=== PATIENT | female | born 1980 | race Caucasian/White ===

== ENCOUNTER → 2018-04-27 | Outpatient (CLI) | payer BC ==
--- NOTE | 2018-04-30 07:38 | MM ---
Reason for exam: screening (asymptomatic). Baseline mammogram. Physical Findings: Nurse did not find any significant physical abnormalities on exam. MG 3D Screening Mammo W/Cad Bilateral CC and MLO view(s) were taken. The breast tissue is heterogeneously dense. This may lower the sensitivity of mammography. Benign calcifications in the right breast. There is no discrete abnormality. These results were verbally communicated with the patient and result sheet given to the patient on 04/27/18. ASSESSMENT: Benign, BI-RAD 2 RECOMMENDATION: Routine screening mammogram of both breasts in 1 year.
== END ==
LOC: RADMAMWWP 13:58
PROVIDERS: ATTEND Family Medicine
DX: Z12.31 Encounter for screening mammogram for malignant neoplasm of breast (principal)
CPT/HCPCS: 77063; 77067

== ENCOUNTER 2018-05-17 09:18 | Day surgery (SDC) | payer BC ==
[2018-05-16 12:26] VITALS: BMI 23.3
--- NOTE | 2018-05-16 16:43 | P.HPOB ---
History of Present Illness H&P Date: 05/16/18 Chief Complaint: High-grade squamous intraepithelial lesion Ana is a 38-year-old female with NIMISHA 3 on colposcopy. She is scheduled for a LEEP colposcopy. Risks/benefits/alternatives to LEEP colposcopy including but not limited to bleeding and infection were explained to the patient in detail all questions were answered for her prior to proceeding to the operating room. During her colposcopy in the office, she had a small punctate lesion that continued to bleed despite just been touched with a Q-tip this area was biopsied and did show NIMISHA-3. She will need close follow-up after this procedure with continued surveillance for approximately the next 20 years. Past Medical History Additional Past Medical History / Comment(s): HX FX SKULL(5 YRS OLD), STOMACH ULCER (IN HER 20'S), ARTHRITIS IN SHOULDERS AND BACK. - SEES CHIROPRACTOR., ABNORMAL PAP TEST. History of Any Multi-Drug Resistant Organisms: None Reported Past Surgical History: Section, Orthopedic Surgery Additional Past Surgical History / Comment(s): RIGHT WRIST SURGERY Past Anesthesia/Blood Transfusion Reactions: Postoperative Nausea & Vomiting ( PONV) Additional Past Anesthesia/Blood Transfusion Reaction / Comment(s): NAUSEA WITH Past Psychological History: Anxiety, Depression Additional Psychological History / Comment(s): PAST HX OF DEPRESSION & ANXIETY. Smoking Status: Current every day smoker Past Alcohol Use History: Occasional Additional Past Alcohol Use History / Comment(s): SMOKES 1 PPD, SMOKING SINCE 12 YRS OLD. DRINKS ON WEEKENDS > 7 DRINKS. Past Drug Use History: Marijuana Additional Drug Use History / Comment(s): CURRENT MARIJUANA USE. - Past Family History Mother Family Medical History: No Reported History Medications and Allergies Home Medications Medication Instructions Recorded Confirmed Type Ibuprofen [Advil] 600 mg PO ONCE PRN 05/16/18 05/16/18 History Allergies Allergy/AdvReac Type Severity Reaction Status Date / Time hydrocodone [From Lortab] AdvReac Unknown Nausea, Verified 05/16/18 12:11 Did not feel well. Exam Osteopathic Statement: *. No significant issues noted on an osteopathic structural exam other than those noted in the History and Physical/Consult. Intake and Output 05/16/18 05/16/18 05/16/18 06:59 14:59 22:59 Other: Weight 63.503 kg - OBG Physical Exam Breast: both: normal (no masses) Abdomen: bowel sounds normal, no diffuse tenderness, no bruit present, no guarding noted, no hepatomegaly, no splenomegaly, no mass Vulva: both: normal Vagina: normal moisture, no discharge Cervix: no lesion, no discharge Uterus: normal size, normal contour Adnexa: both: normal Anus/Rectum: normal perianal skin, no rectal mass, no hemorrhoids, heme negative
[~2018-05-17 09:18] MED LIST: DEXAMETHASONE SOD PHOSPHATE 10 MG/ML 1 ML VIAL IV ONE; LACTATED RINGERS 1,000 ML IV SCH; MIDAZOLAM 2 MG/2 ML VIAL IV PRN; ONDANSETRON 4 MG/2 ML VIAL IVP ONE; Pre Op ABX Message 1 EACH MISC MISCELLANE ONE; SCOPOLAMINE 1.5MG/72HR PATCH TRANSDERM ONE; fentaNYL (PF) 50 MCG/ML 2 ML AMP IV PRN
[2018-05-17] MEDS ORDERED: LIDOCAINE 1% 20 ML VIAL (10MG/ML) FOR IV START INTRADERMA ONE (09:56)
[2018-05-17] MEDS ORDERED: fentaNYL (PF) 50 MCG/ML 2 ML AMP ONE (10:23)
[2018-05-17] MEDS ORDERED: PROPOFOL 10 MG/ML 20 ML VIAL IV ONE (10:23)
[2018-05-17] MEDS ORDERED: MIDAZOLAM 2 MG/2 ML VIAL ONE (10:23)
[2018-05-17] MEDS ORDERED: LIDOCAINE 1% INJ 10MG/ML (20 ML MDV) ONE (10:23)
[2018-05-17] MEDS ORDERED: KETOROLAC 30 MG/ML 1 ML VIAL ONE (10:23)
[2018-05-17] MEDS ORDERED: IODINE/POTASS IOD (LUGOLS) BTL TOPICAL ONE ×2 (10:35)
[2018-05-17 11:08] VITALS: TEMP 97.4
[2018-05-17] MEDS ORDERED: ONDANSETRON 4 MG/2 ML VIAL IVP ONE (12:01)
[2018-05-17] MEDS ORDERED: fentaNYL (PF) 50 MCG/ML 2 ML AMP IVP ONE (12:28)
[2018-05-17 12:33] VITALS: BP 117/79; PULSE 52; RESP 18
--- NOTE | 2018-05-29 12:52 | P.OP ---
Date of Procedure: 05/16/18 Preoperative Diagnosis: Cervical dysplasia Postoperative Diagnosis: Same Procedure(s) Performed: LEEP colposcopy Anesthesia: TESSA Surgeon: Jono Pantoja Pathology: other (Cervical cone) Condition: stable Disposition: same day Operative Findings: Tissue pathology pending Description of Procedure: Patient states the operating suite where a general anesthetic was found be adequate. She was prepped and draped in normal sterile fashion placed in dorsal lithotomy position. Initially a speculum was inserted into the vagina and the cervix was coated with Lugol solution colposcope was brought in and areas of dysplasia identified. Using a 2 cm loop and under colposcopic guidance a biopsy was taken with the loop. Tissue was collected and 1 sample and sent to pathology for evaluation. Once sample was obtained ball-tipped cautery was then used to obtain excellent hemostasis across the incision and to potentially desiccate any remaining dysplastic tissue. Once this was accomplished sponge, lap, needle counts were all correct 2. Patient was then taken to the recovery room in stable and satisfactory condition. Plan - Discharge Summary New Discharge Prescriptions: No Action Ibuprofen [Advil] 600 mg PO ONCE PRN PRN Reason: Pain Discharge Medication List Ibuprofen [Advil] 600 mg PO ONCE PRN 05/16/18 [History] Follow up Appointment(s)/Referral(s): Jono Pantoja DO [Doctor of Osteopathic Medicine] - 1 Week (PT TO MAKE FOLLOW UP APPOINTMENT) Patient Instructions/Handouts: *Surgery [facility] - (Anesthesia) Discharge Instructions Outpatient Surgery, Loop Electrosurgical Excision Procedure (DC) Discharge Disposition: HOME SELF-CARE
== END 2018-05-17 13:02 | disposition home or self-care (01) ==
LOC: OR 09:18
PROVIDERS: ATTEND Obstetrics & Gynecology
DX: N87.1 Moderate cervical dysplasia (principal); F17.210 Nicotine dependence, cigarettes, uncomplicated; F32.9 Major depressive disorder, single episode, unspecified; F41.9 Anxiety disorder, unspecified; Z88.5 Allergy status to narcotic agent; R89.6 Abnormal cytological findings in specimens from other organs, systems and tissues
CPT/HCPCS: 81025; 88307; 57460; J2250; J1100; J2405; J2001; J3010; J1885; J2704

== ENCOUNTER → 2020-01-09 | Outpatient (CLI) | payer BC ==
--- NOTE | 2020-01-14 10:47 | MM ---
Reason for exam: screening (asymptomatic). Last mammogram was performed 1 year and 8 months ago. Physical Findings: A clinical breast exam by your physician is recommended on an annual basis and results should be correlated with mammographic findings. MG Screening Mammo w CAD Bilateral CC and MLO view(s) were taken. Prior study comparison: April 27, 2018, bilateral MG 3d screening mammo w/cad. The breast tissue is heterogeneously dense. This may lower the sensitivity of mammography. No suspicious abnormality. No significant changes when compared with prior studies. ASSESSMENT: Negative, BI-RAD 1 RECOMMENDATION: Routine screening mammogram of both breasts in 1 year. Manage on a clinical basis with regard to chronic nipple discharge for 21 years. If truly clear surgical consult recommended.
== END | disposition home or self-care (01) ==
LOC: RADMAMWWP 16:21
PROVIDERS: ATTEND Obstetrics & Gynecology
DX: Z12.31 Encounter for screening mammogram for malignant neoplasm of breast (principal)
CPT/HCPCS: 77067

== ENCOUNTER → 2020-08-19 | Outpatient (CLI) | payer BC ==
[2020-08-19 16:17] LABS: Basophils # (A) 0.1 k/uL (0-0.2); Basophils % (A) 1 %; Eosinophils # (A) 0.1 k/uL (0-0.7); Eosinophils % (A) 2 %; HCT 43.5 % (34.0-46.0); HGB 14.3 gm/dL (11.4-16.0); Lymphocytes # (A) 2.3 k/uL (1.0-4.8); Lymphocytes % (A) 31 %; MCH 29.4 pg (25.0-35.0); MCHC 32.9 g/dL (31.0-37.0); MCV 89.3 fL (80.0-100.0); Monocytes # (A) 0.4 k/uL (0-1.0); Monocytes % (A) 6 %; Neutrophils # (A) 4.2 k/uL (1.3-7.7); Neutrophils % (A) 58 %; Platelet Count 229 k/uL (150-450); RBC 4.88 m/uL (3.80-5.40); RDW 13.8 % (11.5-15.5); WBC 7.2 k/uL (3.8-10.6)
== END | disposition home or self-care (01) ==
LOC: LABWHC1 15:08
PROVIDERS: ATTEND Obstetrics & Gynecology
DX: Z01.818 Encounter for other preprocedural examination (principal)
CPT/HCPCS: 36415; 85025

== ENCOUNTER 2020-08-21 06:52 | Day surgery (SDC) | payer BC ==
[2020-08-19 12:59] VITALS: BMI 23.3
--- NOTE | 2020-08-20 17:14 | P.HPOB ---
History of Present Illness H&P Date: 08/20/20 Chief Complaint: Family planning: Possible polyp Disha is a 40-year-old female who has completed her family planning and desires permanent sterilization. She also relates that she has some dysfunctional bleeding after intercourse and there is some question or may be a possible polyp at her cervix. We'll do the evaluation under anesthesia. Risks/benefits also alternatives were reviewed with patient in detail and did include but were not limited to bleeding and infection, damage to bladder or bowel, vascular injuries, nerve injuries, ureteral injuries potential need for further surgery and even potentially . She is aware that this procedure is not designed to be reversed it is designed to be permanent. She is aware the risk of failure approximately 4 per thousand. All the questions were answered for her prior to proceeding to the operating room. Past Medical History Additional Past Medical History / Comment(s): HX FX SKULL(5 YRS OLD), STOMACH ULCER (IN HER 20'S), SHOULDER AND BACK PAIN. - SEES CHIROPRACTOR. History of Any Multi-Drug Resistant Organisms: None Reported Past Surgical History: Section, Orthopedic Surgery Additional Past Surgical History / Comment(s): RIGHT WRIST SURGERY, colposcopy, oral surg. Past Anesthesia/Blood Transfusion Reactions: Postoperative Nausea & Vomiting (PONV) Additional Past Anesthesia/Blood Transfusion Reaction / Comment(s): NAUSEA WITH Smoking Status: Current every day smoker - Past Family History Mother Family Medical History: No Reported History Medications and Allergies Home Medications Medication Instructions Recorded Confirmed Type No Known Home Medications 08/19/20 08/19/20 History Allergies Allergy/AdvReac Type Severity Reaction Status Date / Time hydrocodone [From Lortab] AdvReac Unknown Nausea, Verified 08/19/20 10:14 Did not feel well. Exam Osteopathic Statement: *. No significant issues noted on an osteopathic structural exam other than those noted in the History and Physical/Consult. - OBG Physical Exam Breast: both: normal (no masses) Abdomen: bowel sounds normal, no diffuse tenderness, no bruit present, no guarding noted, no hepatomegaly, no splenomegaly, no mass Vulva: both: normal Vagina: normal moisture, no discharge Cervix: no lesion, no discharge Uterus: normal size, normal contour Adnexa: both: normal Anus/Rectum: normal perianal skin, no rectal mass, no hemorrhoids, heme negative
[~2020-08-21 06:52] MED LIST changes: -DEXAMETHASONE SOD PHOSPHATE 10 MG/ML 1 ML VIAL IV ONE; -LACTATED RINGERS 1,000 ML IV SCH; -MIDAZOLAM 2 MG/2 ML VIAL IV PRN; -ONDANSETRON 4 MG/2 ML VIAL IVP ONE; -SCOPOLAMINE 1.5MG/72HR PATCH TRANSDERM ONE; -fentaNYL (PF) 50 MCG/ML 2 ML AMP IV PRN
[2020-08-21] MEDS ORDERED: LACTATED RINGERS 1,000 ML IV SCH (07:36)
[2020-08-21] MEDS ORDERED: ONDANSETRON 4 MG/2 ML VIAL IVP ONE (07:36)
[2020-08-21] MEDS ORDERED: DEXAMETHASONE SOD PHOSPHATE 4 MG/ML 1 ML VIAL IV ONE (07:36)
[2020-08-21] MEDS ORDERED: LIDOCAINE 1% (10MG/ML) FOR IV START INTRADERMA ONE (07:50)
[2020-08-21] MEDS ORDERED: ROCURONIUM 10 MG/ML (10 ML VIAL) IV ONE (08:00)
[2020-08-21] MEDS ORDERED: NEOSTIGMINE 1 MG/ML 10 ML VIAL ONE (08:00)
[2020-08-21] MEDS ORDERED: MIDAZOLAM 2 MG/2 ML VIAL ONE (08:00)
[2020-08-21] MEDS ORDERED: GLYCOPYRROLATE 0.2 MG/ML 2 ML VIAL ONE (08:00)
[2020-08-21] MEDS ORDERED: PROPOFOL 10 MG/ML 20 ML VIAL IV ONE (08:00)
[2020-08-21] MEDS ORDERED: SUCCINYLCHOLINE CHLORIDE 100 MG/5 ML SYR IV ONE (08:00)
[2020-08-21] MEDS ORDERED: fentaNYL (PF) 50 MCG/ML 2 ML AMP ONE (08:00)
[2020-08-21] MEDS ORDERED: LIDOCAINE 1% INJ 10MG/ML (20 ML MDV) ONE (08:00)
[2020-08-21] MEDS ORDERED: KETOROLAC 15 MG/ML 1 ML VIAL ONE (08:00)
[2020-08-21] MEDS ORDERED: BUPIVACAINE (PF) 0.25% 30 ML VIAL SQ ONE ×2 (08:09→08:10)
--- NOTE | 2020-08-21 08:41 | P.OP ---
Date of Procedure: 08/21/20 Preoperative Diagnosis: Family planning and cervical polyp Postoperative Diagnosis: Same Procedure(s) Performed: Laparoscopic tubal occlusion with Filshie clips and cervical polypectomy Anesthesia: TESSA Surgeon: Jono Pantoja Estimated Blood Loss (ml): 4 Urine output (ml): 20 Pathology: other (Polyp) Condition: stable Disposition: same day Operative Findings: Pathology pending Description of Procedure: Patient states the operating suite where a general anesthetic was found be adequate. She was prepped and draped in normal sterile fashion and placed in the dorsal lithotomy position. Initially a speculum was inserted in the vagina and anterior lip of the cervix was identified and grasped with an Allis clamp. Cervix was dilated and a small polyp was believed to be noted at the cervical os. He was removed with the polyp forceps and then gentle all 4 forceps was used intrauterine to verify removal of total polyp. Once this was completed all other incidents removed and a manipulator was inserted without difficulty. Once this was completed the other vaginal incidents removed and red rubber catheter was used to drain the bladder of urine. At this point following removal of the red rubber catheter gloves were changed and attention was turned to the abdominal portion of the procedure where 2 mL of quarter percent Marcaine was injected periumbilically. Through this injected anesthetic a 5 mm skin incision was made and through this incision, under direct visualization with an optical trocar and sleeve, camera was inserted. Once peritoneal placement was assured gas was allowed to fully insufflate the abdomen and patient was placed in steep Trendelenburg position. A second port and sleeve were then inserted through her scar 3 cm above the pubic symphysis. Again this was inserted under direct visualization. Observations pelvis were then noted. First the right fallopian tube than left looking tube had a Filshie clip applied 2-3 cm from uterine cornu. No bleeding is noted in the mesosalpinx therefore incidents removed and gas was allowed to expel the abdomen. 5 deep breaths were provided during this process. 4-0 Vicryl was then used to close incision subcuticularly and another 8 mL of quarter percent Marcaine was injected around these incisions. Manipulator was then removed from vagina. Sponge, lap, needle counts were all correct 2. Patient was then taken to the recovery room in stable and satisfactory condition. Plan - Discharge Summary Discharge Rx Participant: Yes New Discharge Prescriptions: New Ibuprofen [Motrin] 600 mg PO Q6HR PRN #30 tab PRN Reason: Pain HYDROcodone/APAP 5-325MG [Trona 5-325] 1 tab PO Q4HR PRN #20 tab PRN Reason: Pain valACYclovir HCL [Valtrex] 500 mg PO Q12HR #10 tab Discharge Medication List HYDROcodone/APAP 5-325MG [Trona 5-325] 1 tab PO Q4HR PRN #20 tab 08/21/20 [Rx] Ibuprofen [Motrin] 600 mg PO Q6HR PRN #30 tab 08/21/20 [Rx] valACYclovir HCL [Valtrex] 500 mg PO Q12HR #10 tab 08/21/20 [Rx] Follow up Appointment(s)/Referral(s): Jono Pantoja DO [Doctor of Osteopathic Medicine] - 2 Weeks Activity/Diet/Wound Care/Special Instructions: V lifting, limit stairs and driving, and pelvic rest. If any high temperatures, heavy bleeding, or severe pain call my office Discharge Disposition: HOME SELF-CARE
[2020-08-21 08:48] VITALS: TEMP 97.6
[2020-08-21] MEDS: HYDROmorphone 0.5 MG/0.5 ML SYRINGE IVP PRN ×2 (09:01→09:07)
[2020-08-21 09:02] VITALS: RESP 16
[2020-08-21] MEDS ORDERED: HYDROcodone/APAP 5-325MG 1 EACH TAB ONE (10:13)
[2020-08-21] MEDS ORDERED: HYDROcodone/APAP 5-325MG 1 EACH TAB PO ONE (10:14)
[2020-08-21 10:18] VITALS: BP 121/69; PULSE 47
== END 2020-08-21 10:47 | disposition home or self-care (01) ==
LOC: OR 06:52
PROVIDERS: ATTEND Obstetrics & Gynecology
DX: Z30.2 Encounter for sterilization (principal); N84.1 Polyp of cervix uteri; Z98.890 Other specified postprocedural states; F17.200 Nicotine dependence, unspecified, uncomplicated; Z88.5 Allergy status to narcotic agent; Z87.11 Personal history of peptic ulcer disease; Z98.891 History of uterine scar from previous surgery
CPT/HCPCS: 81025; 88305; 57500; 58671; J2250; J1100; J2710; J2405; J2001; J3010; J1885; J0330; J2704; J1170

== ENCOUNTER → 2023-03-07 | Day surgery (SDC) | payer BC ==
[2023-03-01 08:52] VITALS: BMI 22.4
[~2023-03-07] MED LIST changes: +LACTATED RINGERS 1,000 ML IV SCH; +LIDOCAINE 1% (10MG/ML) FOR IV START INTRADERMA ONE; +PROPOFOL 10 MG/ML 20 ML VIAL IV ONE; -Pre Op ABX Message 1 EACH MISC MISCELLANE ONE
[2023-03-07 10:40] VITALS: TEMP 97.4
--- NOTE | 2023-03-07 12:12 | P.PCN ---
Date of Procedure: 03/07/23 Procedure(s) Performed: BRIEF HISTORY: Patient is a 43-year-old pleasant white female scheduled for an elective colonoscopy as a part of screening for colon cancer. She had an episode of acute severe colitis or possibly infectious in etiology about 2 months ago and was hospitalized for 5 days and treated with antibiotics and his symptoms have significantly improved. CT of the abdomen and pelvis done at that time revealed diffuse colonic wall thickening. She is doing well now with one 2 bowel movements a day with no blood or mucus in the stool. Has occasional difficulty defecation PROCEDURE PERFORMED: Colonoscopy with biopsy PREOPERATIVE DIAGNOSIS: Screening for colon cancer. IV sedation per Anesthesia. PROCEDURE: After informed consent was obtained, the patient, was brought into the endoscopy unit. IV sedation was administered by Anesthesia under continuous monitoring. Digital rectal examination was normal. Initially the Olympus CF-160 flexible video colonoscope was then inserted in the rectum, gradually advanced into the descending colon. At 55 cm from the anal verge there was a tight descending colon stricture identified which appeared benign. I could not advance the scope any further through the stricture. The scope was removed and a pediatric colonoscopy was then introduced into the rectum and gently advanced into the descending colon and despite upright pressure I was not able to advance the scope any further. This endoscope was removed and upper endoscope was used and the scope was gradually advanced into the descending colon. With abdominal pressure and gentle manual patient was able to advance the scope through the stricture but immediately there was another stricture that was encountered this proximally and at this point and could not advance any further safely. The scope was gently withdrawn. Mucosa of the descending colon, sigmoid colon, and rectum appeared normal. Scattered sigmoidal mucosa seen in the distal rectum there was a 3 mm polyp that was removed by cold biopsy. Also biopsies were done from the benign-appearing descending colon stricture. Retroflexion was performed in the rectum and no lesions were seen. The patient tolerated the procedure well. IMPRESSION: Tight descending colon stricture at 55 cm from the anal verge and the scope could not be advanced beyond the stricture despite using smaller diameter scope Scattered sigmoid diverticulosis. 3 mm rectal polyp status post cold biopsy RECOMMENDATIONS: Findings of this examination were discussed with the patient is a family. She was advised to follow with the biopsy results. Start on a high-fiber diet and take fiber supplements twice daily. Scheduled for a barium enema to evaluate the rest of the colon.
[2023-03-07 12:34] VITALS: BP 135/79; PULSE 48; RESP 14
== END ==
LOC: ORWHC2ENDO 09:32
PROVIDERS: ATTEND Internal Medicine Gastroenterology
DX: Z12.11 Encounter for screening for malignant neoplasm of colon (principal); K62.1 Rectal polyp; F12.10 Cannabis abuse, uncomplicated; Z88.5 Allergy status to narcotic agent
CPT/HCPCS: 45331; 81025; 88305; J2704; 45378

== ENCOUNTER → 2023-03-13 | Outpatient (CLI) | payer BC ==
--- NOTE | 2023-03-13 22:24 | FL ---
EXAMINATION TYPE: FL barium enema DATE OF EXAM: 03/13/2023 COMPARISON: None HISTORY: Partial intestinal obstruction, nausea vomiting diarrhea TECHNIQUE: Double air contrast technique was utilized to evaluate the colon. Barium followed by air w as refluxed through the colon into the terminal ileum and appendix. FINDINGS: Fluoroscopy time: 2 minutes 21 seconds. Images: 22 Sigmoid colon is redundant. There are a few scattered diverticuli present. No suspicious intraluminal or extramural defects are evident. No persistent suspicious area of circumferential narrowing is pre sent. Postevacuation image is unremarkable. IMPRESSION: 1. Mild diverticulosis without acute diverticulitis.
== END | disposition home or self-care (01) ==
LOC: RADFLMAIN 09:09
PROVIDERS: ATTEND Internal Medicine Gastroenterology
DX: K57.30 Diverticulosis of large intestine without perforation or abscess without bleeding (principal); K56.690 Other partial intestinal obstruction; R19.7 Diarrhea, unspecified; R11.2 Nausea with vomiting, unspecified
CPT/HCPCS: 74270